=== PATIENT | female | born 1960 | race Caucasian/White ===

== ENCOUNTER → 2017-12-28 | Outpatient (CLI) | payer OTHER ==
[~2017-12-28] MED LIST: ACET650S21 PO; ALPR0.25 PO; CHOL100015 PO; DULO30CA2 PO; HYDR-3307 PO; IBUP-1223 PO; OXYC5TAB2 PO; ZOLP10TA PO
[2017-12-28 12:17] LABS: BASOPHILS # (AUTO) 0.05 x10^3/uL (0-0.1); BASOPHILS % (AUTO) 1 % (0-1); EOSINOPHILS # (AUTO) 0.13 x10^3/uL (0-0.4); EOSINOPHILS % (AUTO) 2 % (1-7); LYMPHOCYTES # (AUTO) 2.65 x10^3/uL (1-3.4); LYMPHOCYTES % (AUTO) 33 % (22-44); MD NO; MEAN CORPUSCULAR HEMOGLOBIN 20.6 pg (27.0-34.8); MEAN CORPUSCULAR HGB CONC 30.9 g/dL (32.4-35.8); MEAN CORPUSCULAR VOLUME 66.7 fL (80-100); MEAN PLATELET VOLUME 8.5 fL (7.4-10.4); MONOCYTES # (AUTO) 0.57 x10^3/uL (0.2-0.8); MONOCYTES % (AUTO) 7 % (2-9); NEUTROPHILS # (AUTO) 4.62 x10^3/uL (1.8-6.8); NEUTROPHILS % (AUTO) 58 % (42-75); PLATELET COUNT 438 x10^3/uL (130-400); RED BLOOD COUNT 5.83 x10^6/uL (3.82-5.3); RED CELL DISTRIBUTION WIDTH 20.7 % (9.6-15.2)
[2017-12-28 12:22] LABS: INTERNATIONAL NORMALIZED RATIO 1.05 (0.93-1.1); PROTHROMBIN TIME 10.8 Seconds (9.6-11.5)
[2017-12-28 12:26] LABS: ALBUMIN 3.9 g/dL (3.4-5.0); ANION GAP 6 mmol/L (5-15); CALCIUM 9.3 mg/dL (8.5-10.1); CHLORIDE 110 mmol/L (98-107)
[2017-12-28 12:32] LABS: ALANINE AMINOTRANSFERASE 44 U/L (12-78); ALKALINE PHOSPHATASE 141 U/L (45-117); BILIRUBIN,TOTAL 0.8 mg/dL (0.2-1.0); CREATININE 0.92 mg/dL (0.55-1.02); TOTAL PROTEIN 7.4 g/dL (6.4-8.2)
== END | disposition home or self-care (01) ==
LOC: STAR 11:03
PROVIDERS: ATTEND Surgery
DX: Z01.818 Encounter for other preprocedural examination (principal); I51.7 Cardiomegaly
CPT/HCPCS: 36415; 80053; 85025; 85610; 85730; 93005

== ENCOUNTER 2018-01-05 05:57 | Inpatient (IN) | payer OTHER ==
[~2018-01-05] VITALS: Ht 162.6 cm; Wt 63.0 kg
[~2018-01-05 05:57] MED LIST changes: -ACET650S21 PO; -IBUP-1223 PO; -OXYC5TAB2 PO
[2018-01-05] MEDS ORDERED: EPINEPHRINE 1 MG/ML, 1ML ONE (06:51)
[2018-01-05] MEDS ORDERED: BUPIVACAINE/PF 0.5% ONE (06:51)
[2018-01-05] MEDS ORDERED: LACTATED RINGERS 1,000 ML IV SCH (07:10)
[2018-01-05 07:35] VITALS: BP 111/75
[2018-01-05] MEDS ORDERED: GLYCOPYRROLATE 0.2MG/1ML, 5ML ONE (07:43)
[2018-01-05] MEDS ORDERED: DEXAMETHASONE 4 MG/ML, 1ML ONE (07:43)
[2018-01-05] MEDS ORDERED: CEFAZOLIN 1,000 MG ONE (07:43)
[2018-01-05] MEDS ORDERED: PROPOFOL 10 MG/ML, 20ML ONE (07:43)
[2018-01-05] MEDS ORDERED: SUCCINYLCHOLINE 20 MG/ML, 10ML ONE (07:43)
[2018-01-05] MEDS ORDERED: NEOSTIGMINE 1 MG/ML, 10ML ONE (07:43)
[2018-01-05] MEDS ORDERED: MIDAZOLAM 1 MG/ML, 2ML ONE (07:43)
[2018-01-05] MEDS ORDERED: FENTANYL PF 250 MCG/5ML ONE ×2 (07:43→09:41)
[2018-01-05] MEDS ORDERED: ONDANSETRON 2MG/ML, 2ML ONE (07:43)
[2018-01-05] MEDS ORDERED: ONDANSETRON ODT 8 MG PO PRN (08:30)
[2018-01-05] MEDS ORDERED: PROMETHAZINE 25 MG/ML, 1ML IV PRN (08:30)
[2018-01-05] MEDS ORDERED: HYDROcodone/APAP 7.5-325MG/15ML UDC PO PRN (08:30)
[2018-01-05] MEDS ORDERED: OXYcodone 5 MG/5 ML ORAL.SOL UDC PO PRN (08:30)
[2018-01-05] MEDS ORDERED: ACETAMINOPHEN 325 MG TABLET PO PRN (08:30)
[2018-01-05] MEDS ORDERED: LORazepam 2 MG/ML, 1ML IVPush PRN (08:30)
[2018-01-05] MEDS ORDERED: OXYcodone 5 MG/5 ML ORAL.SOL UDC ONE (11:48)
[2018-01-05] MEDS ORDERED: ACETAMINOPHEN 650 MG/20.3 ML UDC ONE (11:48)
[2018-01-05] MEDS ORDERED: FENTANYL PF 100 MCG/2ML ONE ×2 (11:48→12:12)
[2018-01-05] MEDS: FENTANYL PF 100 MCG/2ML IV PRN ×4 (11:49→12:30)
[2018-01-05] MEDS ORDERED: MORPHINE SULFATE 4 MG/ML, 1ML ONE ×2 (11:58→12:12)
[2018-01-05] MEDS: MORPHINE SULFATE 4 MG/ML, 1ML IVPush PRN ×2 (11:59→12:14)
[2018-01-05 13:20] VITALS: BP 119/78
[2018-01-05] MEDS ORDERED: ONDANSETRON 2MG/ML, 2ML IVPush PRN (15:00)
[2018-01-05] MEDS: ACETAMINOPHEN 500 MG TABLET PO SCH ×2 (15:12→22:38)
[2018-01-05] MEDS: KETOROLAC 30 MG/1 ML IV PRN ×2 (16:32→22:38)
[2018-01-05] MEDS: D5%-0.45NACL+KCL 20MEQ 1,000 ML IV SCH (17:56)
[2018-01-05 19:31] VITALS: BP 102/67
[2018-01-05] MEDS: OXYcodone 5 MG/5 ML ORAL.SOL UDC PO PRN (22:38)
[2018-01-06] MEDS: OXYcodone 5 MG/5 ML ORAL.SOL UDC PO PRN ×5 (00:48→20:37)
[2018-01-06 02:30] VITALS: BP 93/59
[2018-01-06] MEDS: ACETAMINOPHEN 500 MG TABLET PO SCH ×3 (04:52→17:39)
[2018-01-06] MEDS: D5%-0.45NACL+KCL 20MEQ 1,000 ML IV SCH ×2 (06:52→20:40)
[2018-01-06 07:23] VITALS: BP 92/54
[2018-01-06] MEDS: ENOXAPARIN 40 MG/0.4 ML SQ SCH (07:54)
[2018-01-06] MEDS: KETOROLAC 30 MG/1 ML IV PRN (07:54)
[2018-01-06] MEDS: DULOXETINE 30 MG CAPSULE.DR PO SCH (09:00)
[2018-01-06] MEDS: IBUPROFEN 600 MG TABLET PO SCH ×2 (11:52→17:15)
[2018-01-06 13:37] VITALS: BP 116/67
[2018-01-06] MEDS ORDERED: ZOLPIDEM 10MG TABLET PO PRN (17:30)
[2018-01-06 21:05] VITALS: BP 117/70
[2018-01-07] MEDS: OXYcodone 5 MG/5 ML ORAL.SOL UDC PO PRN ×3 (00:23→10:27)
[2018-01-07] MEDS: ACETAMINOPHEN 500 MG TABLET PO SCH ×2 (00:24→06:14)
[2018-01-07 01:48] VITALS: BP 92/54
[2018-01-07 06:58] VITALS: BP 107/65
[2018-01-07] MEDS: IBUPROFEN 600 MG TABLET PO SCH (09:22)
[2018-01-07] MEDS: DULOXETINE 30 MG CAPSULE.DR PO SCH (09:23)
[2018-01-07] MEDS: ENOXAPARIN 40 MG/0.4 ML SQ SCH (09:24)
[2018-01-07] MEDS: D5%-0.45NACL+KCL 20MEQ 1,000 ML IV SCH (09:26)
[2018-01-07] MEDS ORDERED: IBUP-1223 PO (09:44)
[2018-01-07] MEDS ORDERED: ACET650S21 PO (09:44)
[2018-01-07] MEDS ORDERED: OXYC5TAB2 PO (09:46)
[2018-01-07 10:27] VITALS: BP 114/74
[2018-01-08] MEDS ORDERED: ERGOCALCIFEROL 50,000 UNIT CAPSULE PO SCH (15:00)
== END 2018-01-07 10:45 | disposition home or self-care (01) | DRG 328 ==
LOC: OR 05:57 → 4NOR 12:57 → OR 13:00 → 4NOR 13:00
PROVIDERS: ADMIT Surgery; ATTEND Surgery
PROC: 0DV44ZZ Restriction of Esophagogastric Junction, Percutaneous Endoscopic Approach (ICD-10-PCS; 2018-01-05)
PROC: 0BUT4JZ Supplement Diaphragm with Synthetic Substitute, Percutaneous Endoscopic Approach (ICD-10-PCS; principal; 2018-01-05 08:00)
DX: K44.9 Diaphragmatic hernia without obstruction or gangrene (principal); R13.10 Dysphagia, unspecified; K21.9 Gastro-esophageal reflux disease without esophagitis; F32.9 Major depressive disorder, single episode, unspecified
CPT/HCPCS: J0171; J0690; J1100; J1650; J1885; J2250; J2405; J2704; J2710; J3010; J3490; J0330; J3480; J7120; Q4116